=== PATIENT | male | born 1975 | race Caucasian/White ===

== ENCOUNTER 2017-03-12 01:17 | Emergency (ER) | payer BC, MEDICAID ==
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
== END 2017-03-12 02:43 | disposition home or self-care (01) ==
LOC: ER 01:17
DX: S41.111A Laceration without foreign body of right upper arm, initial encounter (principal); W18.02XA Striking against glass with subsequent fall, initial encounter
CPT/HCPCS: 12034; 99283; 99284

== ENCOUNTER 2017-03-26 12:50 | Emergency (ER) | payer BC ==
--- NOTE | 2017-03-26 13:15 | Emergency Department Record ---
History of Present Illness - General Chief Complaint: Suture removal Stated Complaint: STITCHES OUT Source: Patient Mode of arrival: Ambulatory - History of Present Illness Initial Comments: 41 yo male presents for suture removal. He had a right forearm laceration 15 days ago. No complaints as he has been healing. Complaint: Suture/staple removal, Wound re-check Onset/Timin -: Week(s) Initial Visit For: Laceration Returns Today for: Staple/stitch removal Symptoms Since Prior Visit: No new symptoms Associated Symptoms: None - Related Data Allergies Allergy/AdvReac Type Severity Reaction Status Date / Time No Known Drug Allergies Allergy Unverified 06/07/16 08:36 Travel Screening - Travel/Exposure Within Last 30 Days Have you traveled within the last 30 days?: Yes Location Detail:: [place] - Travel/Exposure Within Last Year Have you traveled outside the [place] in the last year?: No - Additonal Travel Details Have you been exposed to anyone with a communicable illness?: No - Travel Symptoms Symptom Screening: None Review of Systems Constitutional: Denies: Chills, Fever, Weakness Eyes: Denies: Eye discharge ENT: Denies: Congestion Respiratory: Denies: Cough Cardiovascular: Denies: Chest pain Endocrine: Denies: Fatigue Gastrointestinal: Denies: Abdominal pain, Diarrhea, Nausea, Vomiting Genitourinary: Denies: Dysuria, Frequency, Hematuria Musculoskeletal: Denies: Arthralgia, Back pain, Joint swelling Skin: Reports: Other (laceration). Denies: Change in color Neurological: Denies: Confusion Psychiatric: Denies: Anxiety Hematological/Lymphatic: Denies: Anemia, Easy bleeding, Easy bruising Past Medical History - SOCIAL HISTORY Smoking Status: Current every day smoker Alcohol Use: Occasional Drug Use: None - RESPIRATORY Hx Respiratory Disorders: No - CARDIOVASCULAR Hx Cardio Disorders: No - NEURO Hx Neuro Disorders: No - GI Hx GI Disorders: No - Hx Genitourinary Disorders: No - ENDOCRINE Hx Diabetes: No Hx Thyroid Disease: No - PSYCH Hx Psych Problems: No - HEMATOLOGY/ONCOLOGY Hx Hematology/Oncology Disorders: No Family Medical History Any Significant Family History?: Yes Hx Diabetes: Father, Mother Hx HTN: Father, Mother Physical Exam - General General Appearance: Alert, Oriented x3, Cooperative, No acute distress Limitations: No limitations - Head Head exam: Atraumatic, Normal inspection - Eye Eye exam: Normal appearance - ENT ENT exam: Normal exam Ear exam: Normal external inspection Nasal Exam: Normal inspection Mouth exam: Normal external inspection - Neck Neck exam: Normal inspection - Cardiovascular Cardiovascular Exam: Normal rhythm, Normal heart sounds Peripheral Pulses: 2+: Radial (R) - Extremities Extremities exam: Normal inspection, Other (Healing right anticubital fossa lacartion without signs of infection) - Neurological Neurological exam: Alert, Oriented X3 - Psychiatric Psychiatric exam: Normal affect, Normal mood - Skin Skin exam: Dry, Intact, Normal color, Warm Course Vital Signs 03/26/17 12:54 Temperature 98.6 F Pulse Rate 88 Respiratory 18 Rate Blood Pressure 146/94 Pulse Ox 98 - Reevaluation(s) Reevaluation #1: The laceration appears to be healing well without signs of infection The sutures were removed without difficulty We discussed home care and reasons to return to the ED 03/26/17 13:16 Disposition Disposition: Discharge Clinical Impression: Encounter for removal of sutures Disposition: Home, Self-Care Condition: (1) Good Instructions: Stitches Removal (ED) Additional Instructions: Return if you have pain, pus, redness, bleeding Be careful for the next 2-3 weeks avoiding lifting or over use with the right arm as your arm continues to heal Forms: Patient Portal Access Time of Disposition: 13:22 Quality - Quality Measures Quality Measures: N/A - Blood Pressure Screening Does Patient Have Any of the Following: No Blood Pressure Classification: Hypertensive Reading Systolic Measurement: 146 Diastolic Measurement: 94 Screening for High Blood Pressure: < Pre-Hypertensive BP, F/U Documented > [ G8950] Pre-Hypertensive Follow-up Interventions: Referral to alternative/primary care provider.
== END 2017-03-26 13:30 | disposition home or self-care (01) ==
LOC: ER 12:50
DX: Z48.02 Encounter for removal of sutures (principal)